=== PATIENT | female | born 1995 | race Two or more races ===

== ENCOUNTER → 2023-03-31 | Outpatient (REF) | payer OTHER | LOC: M SFHCWAGY 17:43 | PROVIDERS: ATTEND Nurse Practitioner Family | DX: Z12.4 Encounter for screening for malignant neoplasm of cervix (principal); R87.618 Other abnormal cytological findings on specimens from cervix uteri | CPT/HCPCS: 87624; G0123 ==

== ENCOUNTER → 2024-06-06 | Outpatient (REF) | payer OTHER | LOC: M SFHCWAGY 13:16 | PROVIDERS: ATTEND Nurse Practitioner Family | DX: Z11.51 Encounter for screening for human papillomavirus (HPV) (principal); Z12.4 Encounter for screening for malignant neoplasm of cervix ==

== ENCOUNTER → 2024-08-10 | Outpatient (REF) | payer OTHER | LOC: M SFHCWAGY 18:19 | PROVIDERS: ATTEND Nurse Practitioner Family | DX: L91.8 Other hypertrophic disorders of the skin (principal) ==

== ENCOUNTER → 2024-09-12 | Outpatient (CLI) | payer OTHER | LOC: M WHC 11:31 | PROVIDERS: ATTEND Nurse Practitioner Family | DX: R92.333 Mammographic heterogeneous density, bilateral breasts (principal); R92.8 Other abnormal and inconclusive findings on diagnostic imaging of breast; Z12.31 Encounter for screening mammogram for malignant neoplasm of breast; Z80.3 Family history of malignant neoplasm of breast ==